=== PATIENT | female | born 1940 | race Caucasian/White ===

== ENCOUNTER → 2016-05-08 14:12 | Outpatient (CLI) | payer MEDICARE, OTHER ==
[2016-04-06 13:23] VITALS: BMI 21.0
[~2016-05-08 14:12] MED LIST: BUMETANIDE0.5 MG PO; BUMEX2 MG PO; COREG 3.1253.125 MG PO; DECADRON4 MG PO; DEMADEX20 MG PO; FLORINEF 0.1 M0.1 MG PO; HYDROCODON-ACE1 EAC7 PO; K-DUR20 MEQ PO; K-TAB10 MEQ PO; LIPITOR80 MG PO; LISINOPRIL2.5 MG PO; LISINOPRIL5 MG PO; MACROBID100 MG PO; MEGACE400 MG/10 PO; METOLAZONE2.5 MG PO; METOLAZONE5 MG PO; PEPCID20 MG PO; PHENERGAN25 M1; POTASSIUM CHLO10 ME1 PO; PRINIVIL20 MG PO; PROTONIX20 MG; PROTONIX20 MG PO; PROVENTIL HFA6.7 GM INH; PULMICORT FLEX90 MCG INH; SYNTHROID125 MCG PO; SYNTHROID75 MCG PO; VALTREX500 MG PO; VITAMIN D2000 UNIT PO; VITAMIN D31000 UNI2 PO; ZOCOR40 MG PO; ZOFRAN4 MG PO; Zaroxolyn PO
== END | disposition home or self-care (01) ==
LOC: D.RT 14:00
DX: E85.9 Amyloidosis, unspecified (principal)

== ENCOUNTER 2016-06-08 10:45 | Inpatient (IN) | payer MEDICARE, OTHER ==
[~2016-06-08] VITALS: Ht 167.6 cm; Wt 56.4 kg
[2016-06-08] MEDS ORDERED: MEGACE400 MG/10 PO (11:16)
[2016-06-08 11:19] VITALS: BP 96/67
--- NOTE | 2016-06-08 11:42 | NUR ---
PT ADMITTED. PT HAS A LEFT CHEST INFUSAPORT. ACCESSED WITH A 20G 3/4 IN NEEDLE BLOOD IMMEDIATELY RETURN. DRESSED WITH DRESSING. SIGNED AND DATED. PT DENEIS NEEDS AT THIS TIME. PT SITTING UP ON SOB EATING LUNCH. WILL CONT TO MONITOR.
[2016-06-08 12:42] VITALS: BP 96/67
--- NOTE | 2016-06-08 13:35 | NUR ---
LYING IN BED IN NO ACUTE DISTRESS. FAMILY AT BEDSIDE. CALL LIGHT WITHIN REACH. DENIES NEEDS.
[2016-06-08 16:28] VITALS: BP 97/53
[2016-06-08 18:22] LABS: BASOPHILS 0.2 % (0.0-2.0); EOSINOPHILS 7.3 % (0-7); HEMATOCRIT 28.3 % (36.0-48.0); HEMOGLOBIN 9.4 g/dL (12-16); IMMATURE GRANULOCYTES 0.6 % (0-5); LYMPHOCYTES 5.7 % (15-50); MCH 30.6 pg (26.0-34.0); MCHC 33.2 g/dL (31.0-37.0); MCV 92.2 fL (80.0-100.0); MEAN PLATELET VOLUME 11.5 fL (7.4-10.4); MONOCYTES 11.8 % (2-11); NEUTROPHILS 74.4 % (40-80); PLATELET COUNT 254 10x3/uL (130-400); RBC 3.07 10x6/uL (4.00-5.40); RDW 15.4 % (11.5-14.5); WBC 9.1 10x3/uL (4.8-10.8)
[2016-06-08 18:33] LABS: ANION GAP 16.7 mmol/L (8-16); CARBON DIOXIDE 18.8 mmol/L (21.0-32.0); CREATININE - SERUM 1.9 mg/dL (0.6-1.3); POTASSIUM - SERUM 5.5 mmol/L (3.5-5.1)
[2016-06-08 19:53] VITALS: BP 114/64
--- NOTE | 2016-06-08 22:58 | NUR ---
PT RESTING IN BED. ALERT/ORIENTED. NO HS MEDS DUE. SALINE LOCK TO LEFT CHEST WALL PORT. ALSO RIGHT CHEST WALL SHUNT WITH DRESSING IN PLACE. NONLABORED RESPIRATIONS ON ROOM AIR. SEE ASSESSMENT. CPOC.
[2016-06-09] VITALS (12 sets, daily range): BP systolic 87–129; BP diastolic 42–71; Ht 167.6 cm; Wt 56.4 kg
[2016-06-09 05:40] LABS: BASOPHILS 0.4 % (0.0-2.0); EOSINOPHILS 9.5 % (0-7); HEMATOCRIT 27.9 % (36.0-48.0); HEMOGLOBIN 9.5 g/dL (12-16); IMMATURE GRANULOCYTES 0.6 % (0-5); LYMPHOCYTES 5.6 % (15-50); MCH 30.9 pg (26.0-34.0); MCHC 34.1 g/dL (31.0-37.0); MCV 90.9 fL (80.0-100.0); MEAN PLATELET VOLUME 10.6 fL (7.4-10.4); MONOCYTES 10.3 % (2-11); NEUTROPHILS 73.6 % (40-80); PLATELET COUNT 275 10x3/uL (130-400); RBC 3.07 10x6/uL (4.00-5.40); RDW 15.3 % (11.5-14.5); WBC 8.6 10x3/uL (4.8-10.8)
[2016-06-09 05:57] LABS: ALBUMIN 1.8 g/dL (3.4-5.0); ANION GAP 14.6 mmol/L (8-16); BILIRUBIN - TOTAL 0.35 mg/dL (0.2-1.3); CARBON DIOXIDE 19.9 mmol/L (21.0-32.0); CREATININE - SERUM 1.8 mg/dL (0.6-1.3); MAGNESIUM - SERUM 1.9 mg/dL (1.8-2.4); PROTEIN - SERUM 5.1 g/dL (6.4-8.2)
[2016-06-09 05:58] LABS: POTASSIUM - SERUM 4.5 mmol/L (3.5-5.1)
--- NOTE | 2016-06-09 05:58 | NUR ---
AM MEDS GIVEN. FLUSHED LEFT CHEST WALL PORT AFTER IV LASIX ADMINISTERED. PT WITH NO OTHER NEEDS. VERY PLEASANT.
--- NOTE | 2016-06-09 07:27 | NUR ---
PT SITTING UP ON SIDE OF THE BED. DENEIS NEEDS WILL CONT TO MONITOR.
[2016-06-09 07:31] LABS: APTT 28.1 SECONDS (22.8-39.4); INR 1.13 (0.85-1.17); PROTIME 14.4 SECONDS (11.6-15.0)
--- NOTE | 2016-06-09 09:00 | NUR ---
CONSENTS SIGNED FOR PT PROCEDURE AND PLACED ON CHART.
--- NOTE | 2016-06-09 10:22 | NUR ---
TRIED TO ATTEMPT TO DRAIN PT PLEUREX CATHETER ON R SIDE. NO DRAINAGE NOTED. REPLACED DRESSING.
--- NOTE | 2016-06-09 12:40 | NUR ---
PT HAS TO HAVE A SPECIAL DRAINAGE KIT TO DRAIN HER PLEURAL CATH. DOESNT DRAIN BY GRAVITY. PT JUST GOT BACK FROM PROCEDURE. THEY DRAINED 1600 CC FROM LEFT SIDE. IR SAID TO WAIT UNTIL TOMORROW TO ATTEMPT DRAINING FROM THE R BECAUSE THEY DRAINED SO MUCH FROM THE LEFT SIDE TODAY.
[2016-06-09 13:32] LABS: PROTEIN - BODY FLUID 0.6 G/DL
[2016-06-09 13:42] LABS: EOS BF 5 %; LYMPH - BF 13 %; MACROPHAGES BF 60 %; NEUT - BF 22 %
--- NOTE | 2016-06-09 17:40 | NUR ---
PT SITTING UP IN BED DENIES NEEDS. PT HAS BEEN COLD ALL DAY, PT COLD NATURED. GIVEN WARM BLANKETS. PT NOT RUNNING A TEMP AT ALL. PT DENIES PAIN AT INCISION SITE FROM PROCEDURE TODAY NEICE AT BEDSIDE WILL CONT TO MONITOR.
--- NOTE | 2016-06-09 23:14 | NUR ---
INIITAL ROUNDS COMPLETED AT 1915 HRS. PT DENIED ANY DISCOMFORT. FAMILY AT BEDSIDE. ASSESSMENT COMPLETED AT 20 10 HRS. PT'S FAMILY TOOK HER TO BR. ASSISTED GETTING BACK INTO BED. SR PER CM HR 90. SBP LOW 87/42. OTHER VSS. O2 2LNC. L CHEST INFUSAPORT SL. DRESSING TO L LATERAL BACK CLEAN, DRY AND INTACT. DRESSING OVER R PLEURAL CAP CLEAN, DRY AND INTACT. LUNGS DIMINISHED IN BASES BILAT. PT ANSWERS QUESTIONS BUT QUICKLY FALLS BACK TO SLEEP. WILL CONTINUE TO MONITOR. SR UP X2, CALL LIGHT WITHIN REACH. BED ALARM ON.
[2016-06-10 00:07] VITALS: BP 89/45
--- NOTE | 2016-06-10 00:20 | NUR ---
PT RESTING WITH EYES CLOSED. RESP EVEN AND REGULAR. SR UP X2, CALL LIGHT WITHIN REACH, BED ALARM ON AND FAMILY AT BEDSIDE.
--- NOTE | 2016-06-10 03:03 | NUR ---
PT RESTING WITH EYES CLOSED. RESP EVEN AND REGULAR. FAMILY AT BEDSIDE. SR UP X2, CALL LIGHT WITHIN REACH AND BED ALARM ON.
[2016-06-10 04:15] VITALS: BP 83/41
--- NOTE | 2016-06-10 04:20 | NUR ---
PT MORE ALERT THIS AM. FOLLOWS COMMANDS. SBP STILL IN THE 80'S. FAMILY AT BEDSIDE STATE THAT IS HER NORMAL. WILL CONTINUE TO MONITOR.
--- NOTE | 2016-06-10 05:12 | NUR ---
AM LAB DRAWN VIA L CHEST INFUSAPORT. WILL CONTINUE TO MONITOR.
--- NOTE | 2016-06-10 06:06 | NUR ---
PT STABEL THROUGHOUT NIGHT. PT MORE ALERT THIS AM. NEEDS MET; WILL CONTINUE TO MONITOR.
--- NOTE | 2016-06-10 06:21 | NUR ---
OTILIO HELD BP 83/41. FAMILY ALSO STATED THEY DO NOT GIVE WHEN THAT LOW. OTHER AM MEDS ADMINISTRATED. WILL CONTINUE TO MONITOR.
[2016-06-10 06:26] LABS: BASOPHILS 0.4 % (0.0-2.0); EOSINOPHILS 8.3 % (0-7); HEMATOCRIT 26.9 % (36.0-48.0); HEMOGLOBIN 8.9 g/dL (12-16); IMMATURE GRANULOCYTES 0.7 % (0-5); LYMPHOCYTES 7.6 % (15-50); MCH 30.2 pg (26.0-34.0); MCHC 33.1 g/dL (31.0-37.0); MCV 91.2 fL (80.0-100.0); MEAN PLATELET VOLUME 10.8 fL (7.4-10.4); MONOCYTES 8.8 % (2-11); NEUTROPHILS 74.2 % (40-80); PLATELET COUNT 263 10x3/uL (130-400); RBC 2.95 10x6/uL (4.00-5.40); RDW 15.2 % (11.5-14.5); WBC 7.6 10x3/uL (4.8-10.8)
[2016-06-10 06:44] LABS: ALBUMIN 1.6 g/dL (3.4-5.0); ANION GAP 13.5 mmol/L (8-16); BILIRUBIN - TOTAL 0.29 mg/dL (0.2-1.3); CALCIUM 7.9 mg/dL (8.5-10.1); POTASSIUM - SERUM 4.5 mmol/L (3.5-5.1); PROTEIN - SERUM 4.8 g/dL (6.4-8.2)
--- NOTE | 2016-06-10 08:04 | NUR ---
AM ROUNDING- PT SITTING UP IN CHAIR WITH EYES OPEN RESTING. FAMILY MEMBERS AT BEDSIDE. ON MONITOR SHOWING SR, HR 88. ALERT AND ORIENTED. LEFT CHEST INFUSA PORT SEEN THAT IS CURRENTLY SALINE LOCKED. ON 02 AT 2L VIA NC. BED BOX ALARM AT BEDSIDE. PER REPORT FROM LOAN REPRESENTATIVE NURSE SAVI AND FAMILY MEMBERS, PTS BLOOD PRESSURE RUNS CHRONICALLY LOW. PTS B/P THIS AM IS 82/46. PT HAS PLEURAL EFFUSION CAP ON RIGHT SIDE THAT PER REPORT IS DRAINED EVERY MORNING. DAUGHTER STATED SHE USUALLY DOES IT AND WILL DO IT THIS MORNING. NO NEED AT CURRENT TIME. WILL CONTINUE TO MONITOR.
[2016-06-10 08:06] VITALS: BP 82/46
[2016-06-10 11:55] VITALS: BP 82/46
[2016-06-10 15:03] VITALS: BP 92/41
--- NOTE | 2016-06-10 17:25 | NUR ---
CALLED THE [facility] TO INFORM DR. GRANDE OF PTS BLOOD PRESSURE (98/54) AND THAT I HELD PTS ORDERED DOSE OF LASIX. ANSWERING SERVICE PERSONEL STATED SHE WOULD INFORM DR. RIVERA WHO IS SECRETARY BOOK KEEPER FOR DR. GRANDE AND WOULD CALL ME BACK. 1726- RECEIVED CALLBACK FROM DR. RIVEAR, INFORMED DR. RIVERA OF PTS BLOOD PRESSURE AND THAT I HELD ORDERED DOSE OF LASIX. DR. RIVERA SAID THAT WAS FINE AND THAT THEY WOULD MONITOR HER AND MAYBE A POSSBILE D/C TOMORROW. WILL CONTINUE TO MONITOR.
--- NOTE | 2016-06-10 17:56 | NUR ---
PT IS LAYING IN BED ON RIGHT SIDE WITH EYES OPEN RESTING. DENIES ANY NEED AT CURRENT TIME. WILL CONTINUE TO MONITOR.
--- NOTE | 2016-06-10 19:35 | NUR ---
ASSESSMENT COMPLETE, A&O, IN BED RESTING ON RIGHT SIDE. 02 AT 2 LITER VIA NC. LEFT CHEST INFUSAPORT SL, LOLAG C/D/I. PT DENIES PAIN OR NEEDS. FAMILY AT BED SIDE.
[2016-06-10 21:06] LABS: AFB SPECIMEN PROCESSING Not Indicated (())
[2016-06-10 21:26] VITALS: BP 90/50
[2016-06-11 00:30] VITALS: BP 84/40
--- NOTE | 2016-06-11 00:54 | NUR ---
JEWEL STRIPPER AT BEDSIDE FOR VS. NEEDS ADDRESSED, CALL LIGHT IN REACH. WILL CONT TO MONITOR.
[2016-06-11 04:30] VITALS: BP 80/41
--- NOTE | 2016-06-11 05:05 | NUR ---
AM LABS DRAWN VIA LEFT CHEST INFUSAPORT WITH OUT DIFFICULTY.
[2016-06-11 05:29] LABS: BASOPHILS 0.1 % (0.0-2.0); EOSINOPHILS 8.3 % (0-7); HEMOGLOBIN 8.6 g/dL (12-16); IMMATURE GRANULOCYTES 0.4 % (0-5); LYMPHOCYTES 5.4 % (15-50); MCH 30.2 pg (26.0-34.0); MCHC 33.1 g/dL (31.0-37.0); MCV 91.2 fL (80.0-100.0); MEAN PLATELET VOLUME 10.1 fL (7.4-10.4); MONOCYTES 11.2 % (2-11); NEUTROPHILS 74.6 % (40-80); PLATELET COUNT 247 10x3/uL (130-400); RBC 2.85 10x6/uL (4.00-5.40); RDW 15.1 % (11.5-14.5); WBC 7.6 10x3/uL (4.8-10.8)
[2016-06-11 05:38] LABS: ALBUMIN 1.5 g/dL (3.4-5.0); ANION GAP 13.4 mmol/L (8-16); BILIRUBIN - TOTAL 0.26 mg/dL (0.2-1.3); CREATININE - SERUM 2.3 mg/dL (0.6-1.3); POTASSIUM - SERUM 4.4 mmol/L (3.5-5.1); PROTEIN - SERUM 4.7 g/dL (6.4-8.2)
--- NOTE | 2016-06-11 07:00 | NUR ---
RECEIVED REPORT. RESTING IN BED WITH EYES CLOSED. EASILY AROUSED. PATIENT VERBALIZED SHE WOULD LIKE TO BE ABLE TO GO HOME TODAY. RESP EVEN AND UNLABORED. ALERT/ORIENTED. DENIES NEEDS. NO DISTRESS.
[2016-06-11 08:13] VITALS: BP 77/38
--- NOTE | 2016-06-11 11:35 | NUR ---
PATIENT LYING IN BED. FAMILY AT BEDSIDE. DENIES NEEDS AT THIS TIME. CALL LIGHT WITHIN REACH. NO DISTRESS.
[2016-06-11 12:43] VITALS: BP 84/37
--- NOTE | 2016-06-11 15:53 | NUR ---
PLEURIX DRAINED AT THIS TIME, 1000CC REMOVED. NO DISTRESS. RESP EVEN AND UNLABORED.
[2016-06-11 16:00] VITALS: BP 72/41
--- NOTE | 2016-06-11 17:17 | NUR ---
SITTING TO SIDE OF BED WITH FAMILY. PATIENT CONSUMING PM MEAL. CALL LIGHT WITHIN REACH. PATIENT DENIES NEEDS AT THIS TIME. NO DISTRESS.
--- NOTE | 2016-06-11 19:57 | NUR ---
ASSESSMENT COMPLETE, A&O, IN BED RESTING ON RIGHT SIDE, 02 AT 2 LITER VIA NC. LEFT CHEST IFP SL, DRSG C/D/I. PT DENIES PAIN OR NEEDS, BED LOW, CL IN REACH.
[2016-06-11 21:24] VITALS: BP 91/41
--- NOTE | 2016-06-12 00:23 | NUR ---
PRODUCT ENGINEER AT BEDSIDE FOR VS. NEEDS ADDRESSED, CALL LIGHT IN REACH. WILL CONT TO MONITOR.
[2016-06-12 00:30] VITALS: BP 80/41
--- NOTE | 2016-06-12 03:21 | NUR ---
RESTING WITH EYES CLOSED, RESPERATIONS EVEN, NO S/S DSITRESS NOTED.
[2016-06-12 04:30] VITALS: BP 83/40
--- NOTE | 2016-06-12 07:01 | HP ---
PATIENT: LUANA SIM MEDICAL RECORD: [id number] ACCOUNT: [id number] LOCATION:[address] : 38 ADMISSION DATE: 06/08/16 HISTORY AND PHYSICAL EXAMINATION DATE OF ADMISSION: 06/08/2016 CHIEF COMPLAINT: Shortness of breath. HISTORY OF PRESENT ILLNESS: The patient is a 75-year-old female, who has had a history of having amyloidosis. She has had bilateral pleural effusion. Also, the patient has PleurX catheter in the right chest. Her uighrrku-cx-qrl has been draining this daily, getting anywhere from 800 cc to 1000 cc. The patient has also been given Lasix to help with her dependent edema, but her blood pressure has become so low. Bcjhjkal-hi-fet is hesitant to give any Lasix. Therefore, it was felt the patient has failed conservative therapy and should be admitted. PAST MEDICAL HISTORY: Her past history is significant that she has had a history of hyperlipidemia, hypertension, hypothyroidism, and osteoporosis. She has had cardiac palpitations in the past. She is followed by Dr. Olivas as well as Dr. Bonner and Dr. Cabrera. FAMILY HISTORY: Her mother had a throat CA and Father had colorectal cancer. MEDICATIONS: Her medications include Bumex 1 mg b.i.d., also Pepcid 20 mg 1 p.o. b.i.d., fludrocortisone 0.1 mg, 3 tablets once a day, lisinopril ____ one-half tablet once a day, KCl 20 mEq, one 3 times a day, Proventil 90 mcg HFA 2 puffs q.4 hours p.r.n. shortness of breath, Synthroid 125 mcg once a day, vitamin D3 of 2000 international units once a day. ALLERGIES: NIACIN WELL NATHAN-D. SOCIAL HISTORY: The patient is a nonsmoker, nondrinker. She educated through the 12th grade. Currently, . REVIEW OF SYSTEMS: CONSTITUTIONAL: She denies any headaches, seizures, or syncope. She denies change in visual or auditory acuity. PULMONARY: She does report having increasing shortness of breath. She has had no cough. She has had no congestion. GASTROINTESTINAL: No chronic nausea, vomiting, melena or hematochezia. EXTREMITIES: The patient does have a decreased appetite. CARDIOVASCULAR: Denies any chest pain, palpitation, PND or orthopnea. GENITOURINARY: No urgency, frequency, or dysuria. PHYSICAL EXAMINATION: GENERAL: She is a very frail female. VITAL SIGNS: Temperature is 97.7, her pulse was 94, respirations 16, blood pressure 96/67, and O2 sat is 96%. HEENT: Her head is normocephalic. No lesions. Ears: TMs clear. Eyes: Pupils equal, round and reactive to light. Extraocular movements intact. Nasal cavity, oral cavity and oropharynx clear. NECK: Supple. There is no adenopathy. HEART: Has a regular rate. HISTORY AND PHYSICAL [id number] LUANA SIM LUNGS: She has decreased breath sounds in all lower feels. ABDOMEN: Soft. The bowel sounds are positive. She has 2+ pretibial edema on the left, 1+ on the right. LABORATORY DATA: She had a proBNP of 13,787. DIAGNOSTIC DATA: She had a chest x-ray. The chest x-ray revealed moderate left pleural effusion, mild to diffuse chronic interstitial prominence, right tunneled pleural drainage catheter without evidence of pneumothorax. ASSESSMENT: Amyloidosis, congestive heart failure, pleural effusions, dependent edema, hypothyroidism, and hypertension. PLAN: The patient will be admitted. Pulmonary as well as cardiology, oncology will be consulted. We will continue to drain the PleurX catheter every morning, most likely the patient will need an echocardiogram. We will check her thyroid level as well as CBC and BMP. TRANSINT:[id number] Voice Confirmation ID: [id number] DOCUMENT ID: [id number] JOHANNY GRANDE MD at 0701 CC: [id number] DICTATION DATE: 06/08/161802 HAM CLERK: 06/08/16 1856 ADM IN [id number] [place] [address]
[2016-06-12 07:20] LABS: BASOPHILS 0.3 % (0.0-2.0); EOSINOPHILS 9.1 % (0-7); HEMATOCRIT 28.4 % (36.0-48.0); HEMOGLOBIN 9.5 g/dL (12-16); IMMATURE GRANULOCYTES 0.7 % (0-5); LYMPHOCYTES 10.5 % (15-50); MCH 30.4 pg (26.0-34.0); MCHC 33.5 g/dL (31.0-37.0); MCV 90.7 fL (80.0-100.0); MEAN PLATELET VOLUME 9.7 fL (7.4-10.4); MONOCYTES 9.1 % (2-11); NEUTROPHILS 70.3 % (40-80); RBC 3.13 10x6/uL (4.00-5.40); RDW 15.4 % (11.5-14.5); WBC 7.1 10x3/uL (4.8-10.8)
[2016-06-12 07:21] LABS: PLATELET COUNT 311 10x3/uL (130-400)
[2016-06-12 07:30] LABS: CALCIUM 8.3 mg/dL (8.5-10.1); CARBON DIOXIDE 21.9 mmol/L (21.0-32.0); CREATININE - SERUM 2.5 mg/dL (0.6-1.3); POTASSIUM - SERUM 4.9 mmol/L (3.5-5.1)
--- NOTE | 2016-06-12 07:44 | NUR ---
AM ROUNDING- PT LAYING IN BED ON RIGHT SIDE WITH EYES OPEN RESTING. DAUGHTER IS AT BEDSIDE. PER REPORT DAUGHTER DRAINS PTS PLEURX CATHETER Q24H. DAUGHTER INFORMED ME THAT IT HASN'T BEEN 24 HOURS YET SINCE IT WAS LAST DONE AND DAUGHTER STATED RIGHT NOW SHE DOES NOT NEED TO HAVE IT (PLEURX CATHETER) DRAINED. ON MONITOR SHOWING SR, HR 93. ON 02 AT 2L VIA NC. LEFT CHEST INFUSA PORT SEEN THAT IS CURRENTLY SALINE LOCKED. ON LOVENOX INJECTION FOR DVT PREVENTION. PER REPORT FROM MACHINIST APPRENTICE WOOD NURSE SAVI, PT HAS CHRONIC LOW BLOOD PRESSURES. 2X2 GUAZE WITH OPSITE SEEN TO LEFT SIDE OF MIDDLE BACK WHERE PER REPORT PT HAD THORACENTESIS A FEW DAYS AGO, DRESSING IS CLEAN, DRY, AND INTACT. PT IS CURRENTLY AWAITING D/C. WILL CONTINUE TO MONITOR.
[2016-06-12 08:32] VITALS: BP 102/54
--- NOTE | 2016-06-12 09:39 | NUR ---
Patient Name: LUANA SIM Admission Status: Urgent Accout number: [id number] Admission Date: 06-08-2016 : 1940 Admission Diagnosis:HEART FAILURE, UNSPECIFIED Attending: JASON Current LOS: 4 Anticipated DC Date: 06-12-2016 Planned Disposition: Home Primary Insurance: MEDICARE A & B Discharge Planning Comments: * Is the patient Alert and Oriented? Yes 0 * How many steps to enter\exit or inside your home? 4 0 * PCP DR. GRANDE 0 * Pharmacy [facility] 0 * Preadmission Environment Home with Family 0 * ADLs Independent 0 * Equipment None 0 * Other Equipment NO MEDICAL EQUIPMENT PROVIDER PREFERENCE 0 * List name and contact numbers for known caregivers / representatives who currently or will assist patient after discharge: KANWAL, SON, MARY, SON, LESLI RAMÍREZ, 0 * Community resources currently utilized None 0 * Please name any agencies selected above. NONE 0 * Additional services required to return to the preadmission environment? No 0 * Can the patient safely return to the preadmission environment? Yes 0 * Has this patient been hospitalized within the prior 30 days at any hospital? No 0 CM MET WITH PT AND SON IN ROOM TO DISCUSS DISCHARGE PLANNING AND NEEDS. PT REPORTS LIVING AT HOME INDEPENDENTLY WITH HER SPOUSE. PT HAS NO MEDICAL EQUIPMENT AND NO OUTSIDE SERVICES ASSISTING IN THE HOME. CM DISCUSSED AVAILABILITY OF HOME HEALTH, REHAB SERVICES AND MEDICAL EQUIPMENT. PT DENIES DISCHARGE NEEDS, REPORTS HER SON WILL PICK HER UP FOR DISCHARGE HOME. IMPORTANT MESSAGE FROM MEDICARE PROVIDED AND EXPLAINED. Cartridge Gauger: Trung Garcia
[2016-06-12] MEDS ORDERED: FLORINEF 0.1 M0.1 MG PO (10:23)
--- NOTE | 2016-06-12 11:34 | NUR ---
CALLED THE [facility] AND SPOKE WITH DR. GRANDE. RECEIVED NEW ORDERS FOR HEPARIN TO FLUSH INFUSAPORT BEFORE REMOVING.
--- NOTE | 2016-06-12 12:05 | NUR ---
INFUSA PORT FLUSHED WITH HEPARIN ORDERED AND REMOVED. TOLERATED WELL. HEART MONITOR REMOVED AND RETURNED TO ISSUE (TELEMETRY). D/C PAPERWORK EXPLAINED TO PT AND SIGNED, PLACED IN CHART. AWAITING PT TO GET BELONGINGS TOGETHER TO BE D/C HOME WITH SON. WILL CONTINUE TO MONITOR.
[2016-06-12 12:30] VITALS: BP 106/45
--- NOTE | 2016-06-12 12:40 | NUR ---
PT D/C VIA WHEELCHAIR.
[2016-06-12 16:13] LABS: FUNGUS STAIN Final report (())
--- NOTE | 2016-07-07 13:49 | CN ---
PATIENT NAME:LUANA SIM MEDICAL RECORD: [id number] : 36 LOCATION:[address] ADMIT DATE: 06/08/16 ACCOUNT: [id number] CONSULTING PHYSICIAN: SHAW BECKER MD REFERRING PHYSICIAN: JOHANNY GRANDE MD DATE OF CONSULTATION: 06/08/2016 CONSULT REQUESTING PHYSICIAN: Johanny Grande MD. REASON FOR CONSULTATION: Left-sided pleural effusion with acute shortness of breath. HISTORY OF PRESENT ILLNESS: Ms. Sim is a 75-year-old female, very well known to me. The patient has a history of amyloidosis, congestive heart failure with diastolic dysfunction with recurrent pleural effusion. According to the patient, since yesterday, she has worsening shortness of breath with mild exertion. Her lower extremity swelling was getting worse. The patient was admitted directly to the hospital today. Her BNP was in 1000s. The chest radiograph showed worsening left-sided pleural effusion. Denies any fever and chill, no night sweats. There is orthopnea. I think she was also hearing wheezing off and on. REVIEW OF SYSTEMS: Mainly in the history of present illness. PAST MEDICAL HISTORY: 1. Amyloidosis. 2. Congestive heart failure with diastolic dysfunction. 3. Recurrent pleural effusion, bilateral. 4. Chronic kidney disease. 5. Hypothyroidism. PAST SURGICAL HISTORY: 1. She has a right-sided PleurX tube placement. 2. ORIF right wrist. ALLERGIES: SHE IS ALLERGIC TO NATHAN, NIACIN, AND PSEUDOEPHEDRINE. PRESENT MEDICATIONS: She was on Florinef, lisinopril and all other present medication reviewed on the [facility]. PERSONAL AND SOCIAL HISTORY: The patient is a nonsmoker, nondrinker. FAMILY HISTORY: Significant for lung disease and cancer. PHYSICAL EXAMINATION: GENERAL: The patient is lying comfortably at bed. She is not in acute respiratory distress. VITAL SIGNS: The blood pressure is 97/53, pulse is 98, respirations 16, temperature 97.6, and SpO2 is 98% on room air. HEENT: Conjunctivae pink, sclerae not icteric. NECK: Supple. There is elevated JVD. CHEST: There are decreased breath sounds at the left base. There are crackles bilaterally. There is no wheezing. HEART: Rhythm regular. Normal sound. There is a grade II/ systolic murmur. CONSULT REPORT [id number] LUANA SIM ABDOMEN: Soft. Bowel sounds present. No hepatosplenomegaly. RECTAL: Deferred. EXTREMITIES: No cyanosis, no clubbing. There are 2+ pedal edema. SKIN: Warm, normal turgor. CENTRAL NERVOUS SYSTEM: The patient is awake and alert. There are no obvious cranial nerve abnormality. The gait was not tested. LABORATORY DATA: The BNP is 13,787. IMAGING: Chest radiograph showed moderate large sized left pleural effusion. The PleurX tube is on the right side. IMPRESSION: 1. Left-sided pleural effusion secondary to congestive heart failure. 2. Chronic diastolic dysfunction. 3. Pulmonary edema. 4. Amyloidosis. 5. Zfags-dk-odetvqu kidney disease. 6. Flare up of the congestive heart failure. RECOMMENDATION: Continue Lasix, albuterol and ipratropium nebulizer p.r.n. Consult interventional radiology for left-sided pleural effusion for her recurrent dyspnea and pleural effusion. She is almost draining 900 cc per day from the right side. Dr. Grande, once again thanks for involving me in the care of Ms. Sim. TRANSINT:[id number] Voice Confirmation ID: [id number] DOCUMENT ID: [id number] SHAW BECKER MD at 1349 CC: JOHANNY GRANDE MD [id number] DICTATION DATE: 06/08/161708 APPEALS REFEREE: 06/08/162057 DIS IN 06/12/16 [id number] [place] [address]
[2016-07-10 08:09] LABS: FUNGUS MYCOLOGY CULTURE Final report (())
[2016-07-26 11:16] LABS: ACID FAST CULTURE Negative (()); ACID FAST SMEAR Negative (())
--- NOTE | 2016-08-13 08:20 | DS ---
PATIENT:LUANA SIM :36 MEDICAL RECORD: [id number] DISCHARGE SUMMARY ADMISSION DATE: 06/08/16 DISCHARGE DATE: 06/12/16 DATE OF ADMISSION: 06/08/2016 DATE OF DISCHARGE: 06/12/2016 CONDITION ON DISCHARGE: Improved. ADMITTING DIAGNOSES: Amyloidosis, congestive heart failure with pleural effusion, dependent edema, hypothyroidism and hypertension. DISCHARGE DIAGNOSES: Heart failure, darzs-lt-ftetvqa diastolic dysfunction, chronic kidney disease stage IV, amyloidosis, acute renal failure, pleural effusion, anemia, hypothyroidism and hypotension. HOSPITAL COURSE: The patient is a very nice 75-year-old female, who had a history of amyloidosis. The patient had developed bilateral pleural effusion. She had had a PleurX catheter placed on the right chest. Her uifmadhd-pb-ukp, who is respiratory therapist states that she had been draining the PleurX catheter daily, getting approximately 800-1000 cc daily. She had been given Lasix for dependent edema. Her blood pressure had been very low. Ksxzixvq-mp-bil hesitant to give any further Lasix, felt the patient had failed conservative therapy and therefore she should be admitted. PHYSICAL EXAMINATION: GENERAL: She was very frail female. VITAL SIGNS: Temperature was 97.7, pulse 94, respirations 16, blood pressure 96/67 and O2 sat was 96%. HEENT: Unremarkable. NECK: Supple. There is no adenopathy. HEART: Had a regular rate. LUNGS: She had decreased breath sounds in all martinez. EXTREMITIES: She had 2+ pretibial edema bilaterally. LABORATORY DATA: She had a ProBNP of 13,787. Chest x-ray revealed a moderate left pleural effusion, mild diffuse chronic interstitial prominence, right pleural effusion was noted. The patient was therefore admitted. Pulmonary, cardiology, oncology consultation was obtained. The patient was also seen by Dr. Valdez, coding and reimbursement specialist. He stopped her Florinef, put her on midodrine, as well as Lasix. Pulmonary consultation was obtained as well. She was seen by Dr. Olivas. Dr. Cabrera saw the patient, her oncologist. She was seen by Dr. Marvin, interventional radiologist, who did a CT thoracentesis, draining 1600 cc of the left. Her condition slowly improved with the thoracentesis. Her breathing had improved. The patient was discharged on 06/12/2016. DISCHARGE INSTRUCTIONS: She will continue on Megace 40 mg p.o. q.i.d., Proventil inhaler 2 puffs q.4 hours p.r.n. shortness of breath, Pulmicort Flexhaler 90 mcg 1 puff b.i.d., Pepcid 20 mg p.o. b.i.d., Florinef 0.2 mg p.o. daily and levothyroxine 125 mcg once a day. The patient was to follow up with me in approximately 1 week. TRANSINT:[id number] Voice Confirmation ID: [id number] DOCUMENT ID: [id number] DISCHARGE SUMMARY REPORT [id number] LUANA SIM JAMES MD at 0820 CC: [id number] DICTATION DATE: 08/12/16 151 DISTRESSER: 08/12/16 1722 DIS IN 06/12/16 [facility] [address] [place] [address]
== END 2016-06-12 12:40 | disposition home or self-care (01) | DRG 291 ==
LOC: D.M2 10:45
PROVIDERS: Specialist; ADMIT Family Medicine
PROC: 0W9B3ZZ Drainage of Left Pleural Cavity, Percutaneous Approach (ICD-10-PCS; principal; 2016-06-09)
DX: I13.0 Hypertensive heart and chronic kidney disease with heart failure and stage 1 through stage 4 chronic kidney disease, or unspecified chronic kidney disease (principal); I50.33 Acute on chronic diastolic (congestive) heart failure; N18.4 Chronic kidney disease, stage 4 (severe); E85.9 Amyloidosis, unspecified; N17.9 Acute kidney failure, unspecified; J90 Pleural effusion, not elsewhere classified; E87.1 Hypo-osmolality and hyponatremia; I95.9 Hypotension, unspecified; E03.9 Hypothyroidism, unspecified; D64.9 Anemia, unspecified